=== PATIENT | male | born 1995 | race African-American/Black ===

== ENCOUNTER 2019-11-16 13:28 | Emergency (ER) | payer SELFPAY ==
[~2019-11-16] VITALS: Ht 172.7 cm; Wt 79.4 kg
[2019-11-16 14:44] VITALS: BP 152/65
[2019-11-16 15:28] LABS: INFLUENZA A PATIENT NEGATIVE (NEGATIVE)
[2019-11-16 15:30] LABS: INFLUENZA B PATIENT POSITIVE (NEGATIVE)
[2019-11-16] MEDS ORDERED: BENZ100C PO (15:53)
[2019-11-16] MEDS ORDERED: OSEL75CA PO (15:53)
--- NOTE | 2019-11-16 15:54 | PHYS DOC ---
Past Medical History Past Medical History: No Pertinent History Past Surgical History: No Surgical History Alcohol Use: Occasionally Drug Use: None Adult General Chief Complaint Chief Complaint: FLU SYMPTOM HPI HPI Patient is a 24 year old male who presents with yesterday began having body aches, cough, fever. He states he has not been taking any medications for any of his symptoms. Review of Systems Review of Systems Constitutional: fever or chills [] HENT: nasal congestion or sore throat [] Respiratory: cough or denies shortness of breath [] Musculoskeletal: Bodyaches. Denies back pain or joint pain [] All other systems were reviewed and found to be within normal limits, except as documented in this note. Current Medications Current Medications Current Medications Medications (Trade) Dose Ordered Sig/Noemi Start Time Stop Time Status Last Admin Dose Admin Ibuprofen (Motrin) 800 mg 1X ONCE 11/16/19 16:00 11/16/19 16:01 DC 11/16/19 16:01 800 MG Allergies Allergies Allergies Coded Allergies Type Severity Reaction Last Updated Verified No Known Drug Allergies 11/16/19 No Physical Exam Physical Exam Constitutional: Well developed, well nourished, no acute distress, non-toxic appearance. [] HENT: Normocephalic, atraumatic, bilateral external ears normal, oropharynx moist, no oral exudates, nose normal. [] Eyes: PERRLA, EOMI, conjunctiva normal, no discharge. [] Neck: Normal range of motion, no tenderness, supple, no stridor. [] Cardiovascular:Heart rate regular rhythm, no murmur [] Lungs & Thorax: Bilateral breath sounds clear to auscultation [] Abdomen: Bowel sounds normal, soft, no tenderness, no masses, no pulsatile masses. [] Skin: Warm, dry, no erythema, no rash. [] Back: No tenderness, no CVA tenderness. [] Extremities: No tenderness, no cyanosis, no clubbing, ROM intact, no edema. [] Neurologic: Alert and oriented X 3, normal motor function, normal sensory function, no focal deficits noted. [] Psychologic: Affect normal, judgement normal, mood normal. Normal Physical Exam [] Current Patient Data Vital Signs Vital Signs Date Time Temp Pulse Resp B/P (MAP) Pulse Ox O2 Delivery O2 Flow Rate FiO2 11/16/19 14:44 102.8 109 19 152/65 (94) 99 Room Air 102.8 Lab Values Laboratory Tests Test 11/16/19 15:02 Influenza Type A Antigen Negative (NEGATIVE) Influenza Type B Antigen Positive (NEGATIVE) EKG EKG [] Radiology/Procedures Radiology/Procedures [] Course & Med Decision Making Course & Med Decision Making Alert and Oriented. Ambulatory with a steady gait. Skin pink warm and dry. Febrile 102.8. Patient states he is eating and drinking appropriately but it is decreased. Speaks in full clear sentences. Lungs are clear to auscultation all lobes. Throat is pink without exudates or swelling. Bilateral tympanic is white. Patient denies dizziness, headache, vomiting, nausea, diarrhea, chest pain, shortness of breath, numbness or tingling, focal weakness. Patient is influenza B positive Endy Disclaimer Endy Disclaimer This electronic medical record was generated, in whole or in part, using a voice recognition dictation system. Departure Departure Impression: Primary Impression: Influenza Disposition: 01 HOME, SELF-CARE Condition: STABLE Referrals: NO PCP (PCP) Patient Instructions: Influenza, Adult Additional Instructions: Drink plenty of fluids. Take ibuprofen or Tylenol to keep your pain down and fever. Take medication with food. Scripts Benzonatate (TESSALON PERLE) 100 Mg Capsule 1 CAP PO TID, #30 CAP Prov: SINDY CHINCHILLA PSYCHIATRIC NURSE 11/16/19 Oseltamivir Phosphate (TAMIFLU) 75 Mg Capsule 1 CAP PO BID, #10 CAP Prov: SINDY CHINCHILLA PSYCHIATRIC NURSE 11/16/19 SINDY CHINCHILLA PSYCHIATRIC NURSE Nov 16, 2019 15:54
[2019-11-16] MEDS: IBUPROFEN 400 MG TABLET. PO ONE (16:01)
== END 2019-11-16 16:04 | disposition home or self-care (01) ==
LOC: ER 13:28
DX: J10.1 Influenza due to other identified influenza virus with other respiratory manifestations (principal); R50.9 Fever, unspecified; R05 Cough; R09.81 Nasal congestion
CPT/HCPCS: 87804; 99284